=== PATIENT | male | born 1955 | race Caucasian/White ===

== ENCOUNTER → 2020-05-22 14:14 | Outpatient (CLI) | payer OTHER, SELFPAY ==
[2020-05-23 19:14] LABS: COVID19 Sendout Not Detected (Not Detect)
== END ==
PROVIDERS: Visit Provider Physician Assistant
DX: Z11.59 Encounter for screening for other viral diseases (principal)
CPT/HCPCS: 87635

== ENCOUNTER → 2020-09-19 08:34 | Outpatient (CLI) | payer OTHER, SELFPAY ==
[2020-09-19 10:56] LABS: COVID19 -Nasal RAPID Negative (Negative)
== END ==
PROVIDERS: Visit Provider Physician Assistant
DX: Z11.59 Encounter for screening for other viral diseases (principal)
CPT/HCPCS: 87635

== ENCOUNTER 2020-09-21 11:52 | Day surgery (SDC) | payer OTHER, SELFPAY ==
--- NOTE | 2020-09-21 11:48 | P.HP_ITS ---
History of Present Illness History of Present Illness Date Patient Seen: 09/21/20 [place] [facility] [place]: 65 Years Old Male seen today for consideration of a screening colonoscopy. Last colonoscopy 2009, reportedly normal. There have been no lower GI symptoms suggesting disease such as change in bowel habits, bleeding, abdominal pain or anemia. There's been no family history of colon cancer or colon polyps. Overall health issues have been stable, including no major cardiac events for at least 6 weeks. Past Medical History: Laceration of left lower extremity CERUMEN IMPACTION, BILATERAL TENDONITIS, EPICONDYLE, RIGHT LATERAL Low back pain Stroke, 10 years ago HYPERLIPIDEMIA HYPERTENSION Past Surgical History: Back surgery with steel latosha replacement (12/02/16) Family History: Reviewed history from 06/24/2018 and no changes required: Father: Substance Abuse, HTN, Hyperlipidemia Mother: HTN, Hyperlipidemia, dementia Siblings: Social History: Reviewed history from 06/24/2018 and no changes required: Marital Status: Children: Alia Occupation: Retired Household Members: Ryann (06/03/59) Education: Some college Alcohol drinks/day: 4/day Patient History Surgical History (Updated 02/16/18 @ 05:47 by Conversion Provider) History of lithotripsy Status post arthroscopy Family & Social History Family History (Updated 04/27/16 @ 00:00 by Conversion Provider) Father Bone cancer Alcoholism Hypertension High cholesterol Grandfather Hypertension High cholesterol Grandmother Hypertension High cholesterol Mother Age: 82 Alzheimer's dementia Hypertension High cholesterol Grandmother Hypertension High cholesterol Meds Home Medications and Allergies Home Medications Medication Instructions Recorded Confirmed Type ASPIRIN (#ASPIR 81) 81 mg PO PRN #0 11/08/12 09/21/20 History MULTIVITAMIN (#MULTIPLE VITAMINS) 1 cap PO Q DAY #0 11/08/12 09/21/20 History potassium chloride [Klor-Con M20] 20 meq PO QDAY #90 tab 10/05/17 09/21/20 Rx zolpidem 10 mg tablet 10 mg PO BEDTIME PRN #30 tab 04/12/18 09/21/20 Rx atorvastatin 20 mg tablet 20 mg PO HS #90 tab 08/12/18 09/21/20 Rx chlorthalidone 25 mg tablet See Rx Instructions PO QDAY #90 tab 08/12/18 09/21/20 Rx lisinopril 40 mg PO BEDTIME 09/21/20 09/21/20 History metoprolol succinate [Toprol XL] 25 mg PO BEDTIME 09/21/20 09/21/20 History Allergies Allergy/AdvReac Type Severity Reaction Status Date / Time cling free Allergy Mild Skin Uncoded 09/21/20 12:22 Irritation Review of Systems Review of Systems ROS: Yes All systems reviewed with the patient and are negative except as otherwise documented Exam Narrative Exam Narrative: GENERAL: Alert and oriented, appearing stated age and in no acute distress. HEENT: Head normocephalic/atraumatic. Pupils equal, round, and reactive to light and accomodation. Extraocular muscles intact. Tympanic membranes clear. Nasal mucosa moist, septum midline. Oral mucosa moist, no lesions. Neck soft and supple, no lymphadenopathy. LUNGS: Clear to ausculation bilaterally, no wheezes, rhonchi or rales. CV: Normal S1 and S2 with regular rate and rhythm, no audible murmurs, rubs or gallops. ABDOMEN: Soft, non-tender, non-distended, no organomegaly. Positive bowel sounds. EXTREMITIES: No clubbing, cyanosis, or edema. NEURO: Cranial nerves II through XII grossly intact, no focal deficits. PSYCH: Alert and oriented x 3. SKIN: No concerning lesions. Assessment & Plan Assessment & Plan narrative: 1. Screening for colon cancer Plan for colonoscopy. The nature and character of the procedure as well as anticipated results were discussed. The possibility of not completing the procedure was also discussed. Possible complications including aspiration pneumonia, bleeding, perforation and reaction to medications either for sedation or preparation and missed lesions were discussed. Questions were answered and proceeding to the colonoscopy was elected. Informed consent signed. I sincerely appreciate the referral allowing me to participate in this patient's care. Please contact me with any questions or concerns.
--- NOTE | 2020-09-21 11:50 | PM.OP.ENDO ---
Operative Date/Time/Diagnoses Date of procedure: 09/21/20 Procedure Notes SCOAP/Timeout: 1:11 p.m. Procedure in detail: ENDOSCOPIST: Zulema Freeman MD Sedation RN: Makeda Morris RN Sedation start time: 1:12 p.m. Sedation end time: 1:28 p.m. PROCEDURE: Colonoscopy INDICATIONS: 1. Screening for colon cancer MEDICATION: Levsin 0.125 mg sublingual, incremental doses of Versed and fentanyl until appropriate level sedation achieved. ASA CLASS: 2 CECAL WITHDRAWAL TIME: 8 minutes COMPLICATIONS: None. EXTENT OF PROCEDURE: Cecum. QUALITY OF PREP: Good with portions of liquid stool. PROCEDURE: Prior to insertion of the colonoscope, a digital rectal examination was accomplished with circumferential palpation of the distal rectal mucosa without significant findings being noted. The high-definition colonoscope was passed into the rectum in the usual fashion and advanced over to the cecum without difficulty. The ileocecal valve, appendiceal stoma, and medial wall all could be inspected and no abnormalities were seen. ASCENDING COLON: As the colonoscope was withdrawn, care was taken to expose and inspect the haustral folds and no abnormalities were seen. HEPATIC FLEXURE: Normal, no polyps, diverticula or other abnormalities. TRANSVERSE COLON: Normal, no polyps, diverticula or other abnormalities. DESCENDING COLON: Normal, no polyps, diverticula or other abnormalities. SIGMOID COLON: Normal, no polyps, diverticula or other abnormalities. RECTUM: Normal. J maneuver was produced. There was no significant perianal disease. The J maneuver was broken. The remainder of the rectum was inspected and there was no external hemorrhoid disease. The scope was withdrawn. IMPRESSION: 1. Normal colonoscopy PLAN: 1. Repeat colonoscopy in 10 years. The possibility of a missed lesion including a malignancy has been discussed with the patient previously. Potential alarm symptoms have been discussed and should be reported immediately.
[2020-09-21] MEDS: HYOSCYAMINE 0.125 MG TABLET PO (12:16)
[2020-09-21] MEDS: LACTATED RINGERS 1,000 ML 200 ML IV (12:17)
[2020-09-21 12:18] VITALS: BP 178/89; PULSE 105; RESP 12; TEMP 36.4; O2SAT 97
[2020-09-21 12:20] VITALS: BMI 25.4
[2020-09-21] MEDS: fentaNYL 250 MCG/5 ML INJ IV (13:12)
[2020-09-21] MEDS: MIDAZOLAM 5 MG/5 ML VIAL IV (13:16)
[2020-09-21 13:33] VITALS: BP 101/74; PULSE 83; RESP 13; TEMP 37; O2SAT 96
[2020-09-21 13:38] VITALS: BP 116/84; PULSE 97; RESP 20; TEMP 36.7; O2SAT 96
[2020-09-21 13:43] VITALS: BP 106/60; PULSE 98; RESP 11; TEMP 36.9; O2SAT 96
[2020-09-21 13:47] VITALS: BP 112/83; PULSE 91; RESP 13; TEMP 37; O2SAT 95
== END 2020-09-21 14:05 | disposition home or self-care (01) ==
PROVIDERS: Referring Provider Student in an Organized Health Care Education/Training Program; Visit Provider Student in an Organized Health Care Education/Training Program
PROC: 0DJD8ZZ Inspection of Lower Intestinal Tract, Via Natural or Artificial Opening Endoscopic (ICD-10-PCS; CPT 45378; principal; 2020-09-21 13:00)
DX: Z12.11 Encounter for screening for malignant neoplasm of colon (principal); E78.5 Hyperlipidemia, unspecified; I10 Essential (primary) hypertension; Z86.73 Personal history of transient ischemic attack (TIA), and cerebral infarction without residual deficits
CPT/HCPCS: 45378; J2250; J3010

== ENCOUNTER → 2021-01-02 08:04 | Outpatient (CLI) | payer OTHER, SELFPAY ==
[2021-01-02] MEDS: COVID-19 VACC #1, MRNA(MOD) 100 MCG/0.5 ML VIAL IM (08:15)
== END ==
PROVIDERS: Visit Provider Internal Medicine
DX: Z23 Encounter for immunization (principal)
CPT/HCPCS: 0011A; 91301

== ENCOUNTER → 2021-01-30 07:46 | Outpatient (CLI) | payer OTHER, SELFPAY ==
[2021-01-30] MEDS: COVID-19 VACC #2, MRNA(MOD) 100 MCG/0.5 ML VIAL IM (07:51)
== END ==
PROVIDERS: Visit Provider Internal Medicine
DX: Z23 Encounter for immunization (principal)
CPT/HCPCS: 0012A; 91301

== ENCOUNTER → 2021-11-25 09:46 | Outpatient (CLI) | payer OTHER, SELFPAY ==
--- NOTE | 2021-11-25 | DI.RAD.S_ITS ---
PROCEDURE: XR SHOULDER RT MIN 2V INDICATIONS: RIGHT SHOULDER PAIN TECHNIQUE: 3 views of the shoulder were acquired. COMPARISON: None. FINDINGS: Bones: No fractures or dislocations. [id number] acromioclavicular joint and glenohumeral joint osteoarthritic changes are seen. No suspicious bony lesions. Visualized ribs appear intact. Soft tissues: No suspicious soft tissue calcifications. 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 No fracture or dislocation. No gross soft tissue abnormality. Dictated by: Arik Luciano M.D. on 11/25/2021 at 10:39 Approved by: Arik Luciano M.D. on 11/25/2021 at 10:44
== END ==
PROVIDERS: PCP Family Medicine; Referring Provider Family Medicine; Visit Provider Family Medicine
DX: M19.011 Primary osteoarthritis, right shoulder (principal); M25.511 Pain in right shoulder
CPT/HCPCS: 73030

== ENCOUNTER → 2024-06-27 15:16 | Outpatient (CLI) | payer OTHER, SELFPAY ==
--- NOTE | 2024-06-27 15:20 | DI.RAD.S_ITS ---
PROCEDURE: XR CERVICAL SPINE 4V OR 5V INDICATIONS: Anesthesia of skin TECHNIQUE: 5- views of the cervical spine acquired. COMPARISON: None. FINDINGS: Bones: No fractures or dislocations to the C7 level. Oblique images demonstrate mild bilateral neural foraminal narrowing at C3-4, C4-5, C5-6, C6-7. Moderate disc height loss at C5-6, C3-4. Mild disc height loss at remaining levels. Diffuse facet arthrosis. Soft tissues: No prevertebral soft tissue swelling. IMPRESSION: Mild to moderate, multilevel degenerative disc disease and diffuse facet arthrosis. Dictated by: Puneet Vela M.D. on 06/27/2024 at 17:10 Approved by: Puneet Vela M.D. on 06/27/2024 at 17:11
== END ==
PROVIDERS: PCP Family Medicine; Referring Provider Family Medicine; Visit Provider Family Medicine
DX: M47.812 Spondylosis without myelopathy or radiculopathy, cervical region (principal); M50.31 Other cervical disc degeneration, high cervical region; M48.02 Spinal stenosis, cervical region; R20.0 Anesthesia of skin
CPT/HCPCS: 72050